=== PATIENT | male | born 1990 | race African-American/Black ===

== ENCOUNTER 2016-05-15 23:11 | Inpatient (IN) | payer OTHER ==
[~2016-05-15] VITALS: Ht 195.6 cm; Wt 77.0 kg
[2016-05-15 23:13] VITALS: BP 124/76; PULSE 42; RESP 16; TEMP 98; O2SAT 100
[2016-05-16 00:29] VITALS: BP 122/75; PULSE 104; RESP 18; O2SAT 96
[2016-05-16 01:07] LABS: AUTOMATED NEUTROPHIL # 4.8 TH/MM3 (1.8-7.7); BASOPHIL % 0.5 % (0.0-2.0); EOSINOPHIL # 0.5 TH/MM3 (0-0.4); EOSINOPHIL % 6.4 % (0.0-4.0); HEMATOCRIT 42.7 % (39.0-51.0); HEMO FLAGS DIFF FINAL; LYMPH % 26.7 % (9.0-44.0); LYMPHOCYTE # 2.1 TH/MM3 (1.0-4.8); MEAN CELL VOLUME 81.8 FL (80.0-100.0); MEAN CORPUSCULAR HGB CONC 34.3 % (32.0-36.0); MONO % 6.3 % (0.0-8.0); NEUT % 60.1 % (16.0-70.0); PLATELET COUNT 180 TH/MM3 (150-450); RED BLOOD COUNT 5.22 MIL/MM3 (4.50-5.90); RED CELL DISTRIBUTION WIDTH 14.9 % (11.6-17.2)
[2016-05-16 01:10] LABS: AMPHETAMINE, URINE NEG (NEG); BARBITURATES, URINE NEG (NEG); COCAINE, URINE NEG (NEG)
[2016-05-16 01:14] LABS: ANION GAP 6 MEQ/L (5-15); BICARBONATE 29.7 MEQ/L (21.0-32.0); BLOOD UREA NITROGEN 10 MG/DL (7-18); CHLORIDE 105 MEQ/L (98-107); GLOMERULAR FILTRATION RATE 82 ML/MIN (>89); POTASSIUM 3.7 MEQ/L (3.5-5.1); SODIUM (NA) 141 MEQ/L (136-145)
--- NOTE | 2016-05-16 01:55 | PD ---
HPI Chief Complaint: Psychiatric Symptoms Time Seen by Provider: 01:55 Travel History International Travel<30 days: No Contact w/Intl Traveler<30days: No Traveled to known affect area: No History of Present Illness HPI 26-year-old male with no significant medical history presents to the emergency department voluntarily for psychiatric evaluation. Patient states that he has been depressed and having suicidal thoughts. He has no active plan. Reports occasional alcohol, tobacco, marijuana use. Reports no other symptoms at this time. [facility] Past Medical History Medical History: Denies Significant Hx Diminished Hearing: No Immunizations Current: Yes Past Surgical History Other Surgery: Yes (LEFT INDEX FINGER) Social History Alcohol Use: Yes (OCC) Tobacco Use: Yes (1 BLACK PER DAY) Substance Use: Yes Allergies-Medications (Allergen,Severity, Reaction): Coded Allergies: No Known Allergies (Unverified , 05/15/16) Reported Meds & Prescriptions Reported Meds & Active Scripts Active No Active Prescriptions or Reported Medications Review of Systems Except as stated in HPI: all other systems reviewed are Neg Physical Exam Narrative GENERAL: Well-nourished male patient, in no acute distress SKIN: Warm and dry. HEAD: Atraumatic. Normocephalic. EYES: Pupils equal and round. No scleral icterus. No injection or drainage. ENT: No nasal bleeding or discharge. Mucous membranes pink and moist. NECK: Trachea midline. No JVD. CARDIOVASCULAR: Regular rate and rhythm. No murmur appreciated. RESPIRATORY: No accessory muscle use. Clear to auscultation. Breath sounds equal bilaterally. GASTROINTESTINAL: Abdomen soft, non-tender, nondistended. Hepatic and splenic margins not palpable. MUSCULOSKELETAL: No obvious deformities. No clubbing. No cyanosis. No edema. NEUROLOGICAL: Awake and alert. No obvious cranial nerve deficits. Motor grossly within normal limits. Normal speech. Data Data Last Documented VS Vital Signs Date Time Temp Pulse Resp B/P Pulse Ox O2 Delivery O2 Flow Rate FiO2 05/16/16 02:11 89 18 112/57 96 Room Air 05/15/16 23:13 98.0 Orders Complete Blood Count With Diff (05/16/16 00:12) Basic Metabolic Panel (Bmp) (05/16/16 00:12) Drug Screen, Random Urine (05/16/16 00:12) Alcohol (Ethanol) (05/16/16 00:12) Psych Screen (05/16/16 00:12) Diet Regular Basic (05/16/16 Breakfast) Labs Laboratory Tests Test 05/16/16 00:30 White Blood Count 8.0 TH/MM3 Red Blood Count 5.22 MIL/MM3 Hemoglobin 14.6 GM/DL Hematocrit 42.7 % Mean Corpuscular Volume 81.8 FL Mean Corpuscular Hemoglobin 28.0 PG Mean Corpuscular Hemoglobin 34.3 % Concent Red Cell Distribution Width 14.9 % Platelet Count 180 TH/MM3 Mean Platelet Volume 8.5 FL Neutrophils (%) (Auto) 60.1 % Lymphocytes (%) (Auto) 26.7 % Monocytes (%) (Auto) 6.3 % Eosinophils (%) (Auto) 6.4 % Basophils (%) (Auto) 0.5 % Neutrophils # (Auto) 4.8 TH/MM3 Lymphocytes # (Auto) 2.1 TH/MM3 Monocytes # (Auto) 0.5 TH/MM3 Eosinophils # (Auto) 0.5 TH/MM3 Basophils # (Auto) 0.0 TH/MM3 CBC Comment DIFF FINAL Differential Comment Sodium Level 141 MEQ/L Potassium Level 3.7 MEQ/L Chloride Level 105 MEQ/L Carbon Dioxide Level 29.7 MEQ/L Anion Gap 6 MEQ/L Blood Urea Nitrogen 10 MG/DL Creatinine 1.10 MG/DL Estimat Glomerular Filtration 82 ML/MIN Rate Random Glucose 126 MG/DL Calcium Level 8.9 MG/DL Urine Opiates Screen NEG Urine Barbiturates Screen NEG Urine Amphetamines Screen NEG Urine Benzodiazepines Screen NEG Urine Cocaine Screen NEG Urine Cannabinoids Screen POS Ethyl Alcohol Level LESS THAN 3 MG/DL MDM Medical Decision Making Medical Screen Exam Complete: Yes Emergency Medical Condition: Yes Medical Record Reviewed: Yes Differential Diagnosis Mood disorder versus personality disorder versus adjustment reaction disorder versus malingering Narrative Course 26-year-old male presents to the emergency department all interiorly for psychiatric evaluation. Patient appears without distress. Lab work is without acute concern. Patient is medically cleared to undergo psychiatric screening for further evaluation and disposition. Mental health screening discussed with the patient. Psychiatric screen ordered. Diagnosis Primary Impression: Adjustment reaction with anxiety and depression Scripts No Active Prescriptions or Reported Meds Condition: Yomaira Reyes May 16, 2016 01:55
[2016-05-16 02:11] VITALS: BP 112/57; PULSE 89; RESP 18; O2SAT 96
[2016-05-16 06:15] VITALS: BP 122/78; PULSE 78; RESP 18; TEMP 97.4; O2SAT 97
[2016-05-16 11:21] VITALS: BP 106/55; PULSE 54; RESP 16; O2SAT 98
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
[2016-05-16] MEDS ORDERED: ACETAMINOPHEN 325 MG TAB PO PRN (13:00)
[2016-05-16] MEDS ORDERED: MAGNESIUM HYDROXIDE SUSP 30 ML CUP PO PRN (13:00)
[2016-05-16] MEDS ORDERED: ALUMINUM/MAGNESIUM/SIMETH 30 ML CUP PO PRN (13:00)
[2016-05-16 13:22] VITALS: BP 107/64; PULSE 45; RESP 18; TEMP 98.3; O2SAT 99
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
[2016-05-16] MEDS ORDERED: LORazepam 0.5 MG TAB PO PRN (17:00)
[2016-05-16] MEDS: QUEtiapine FUMARATE 100 MG TAB PO SCH (20:27)
[2016-05-16] MEDS: DIVALPROEX SODIUM DELAYED RELEASE 250 MG TAB PO SCH (20:27)
[2016-05-17 05:38] VITALS: BP 96/53; RESP 18; TEMP 97.6; O2SAT 96
[2016-05-17 08:05] LABS: ANION GAP 4 MEQ/L (5-15); BICARBONATE 30.8 MEQ/L (21.0-32.0); BLOOD UREA NITROGEN 9 MG/DL (7-18); CHLORIDE 107 MEQ/L (98-107); GLOMERULAR FILTRATION RATE 90 ML/MIN (>89); HDL CHOLESTEROL 77.2 MG/DL (40.0-60.0); LDL CHOLESTEROL 78 MG/DL (0-99); POTASSIUM 4.7 MEQ/L (3.5-5.1); SODIUM (NA) 142 MEQ/L (136-145)
[2016-05-17] MEDS: DIVALPROEX SODIUM DELAYED RELEASE 250 MG TAB PO SCH ×2 (08:27→20:50)
--- NOTE | 2016-05-17 11:50 | HHI.PYPN ---
Subjective Remarks Patient was seen and discussed with the medical staff coordinator. Patient tends to isolate himself and withdraws he was encouraged to participate in all the therapeutic activity on the floor. Patient claimed that he feels safe in the hospital and denied any suicidal ideation intentions or plan. No behavior or management problem reported. Denied any auditory or visual hallucinations. Patient is compliant in taking medication no side effects were complained. Advised to continue with the same treatment. donor services technician to assist. Review of Systems Except as stated in HPI: all other systems reviewed are Neg Psychiatric: COMPLAINS OF: Mood changes, Depression Objective Alert: Yes [place]: Person (ox4) Mood: Depressed Affect: Euthymic Memory Intact: Comment (no impairment) Hallucinations: Other (patient denied any active auditory or visual hallucinations) Delusions: No Delusion Type: Other Suicidal: Ideation (deneis current plan) Homicidal: Ideation (deneis any) Insight/Judgement Fair Labs Test 05/17/16 07:17 Sodium Level 142 MEQ/L Potassium Level 4.7 MEQ/L Chloride Level 107 MEQ/L Carbon Dioxide Level 30.8 MEQ/L Anion Gap 4 MEQ/L Blood Urea Nitrogen 9 MG/DL Creatinine 1.20 MG/DL Estimat Glomerular Filtration 90 ML/MIN Rate Random Glucose 85 MG/DL Calcium Level 9.0 MG/DL Triglycerides Level 68 MG/DL Cholesterol Level 169 MG/DL LDL Cholesterol 78 MG/DL HDL Cholesterol 77.2 MG/DL Cholesterol/HDL Ratio 2.18 RATIO Vitals/IOs Vital Signs Date Time Temp Pulse Resp B/P Pulse Ox O2 Delivery O2 Flow Rate FiO2 05/17/16 05:38 97.6 18 96/53 96 05/16/16 13:22 45 05/16/16 06:15 Room Air Assessment & Plan Problem List: (1) Adjustment disorder with depressed mood ICD Code: F43.21 Assessment & Plan Estimated LOS: days Justification for Cont. Inpt. Monitoring of the medication to lift her depression and stabilize his mood Request HC Surrog/Guard Advoc?: No Saúl Christianson MD May 17, 2016 11:50
[2016-05-17 17:32] LABS: HEMOGLOBIN A1a 1.1 %; HEMOGLOBIN A1b 0.8 %; HEMOGLOBIN Ao 85.9 %; HEMOGLOBIN LA1C 1.7 %; HEMOGLOBIN P3 3.3 %
[2016-05-17 18:00] VITALS: BP 104/60; PULSE 49; RESP 18; TEMP 98.2; O2SAT 100
[2016-05-17] MEDS: QUEtiapine FUMARATE 100 MG TAB PO SCH (20:50)
[2016-05-18 05:31] VITALS: BP 98/61; PULSE 55; RESP 16; TEMP 97.7
[2016-05-18] MEDS: DIVALPROEX SODIUM DELAYED RELEASE 250 MG TAB PO SCH (09:40)
--- NOTE | 2016-05-18 10:13 | HHI.DS ---
Psychiatry Discharge Summary Inpatient Psychiatric care?: Yes Advance Directive: No Reason Not Provided: Due to Patient Condition Mental Health AdvanceDirective: No Health Care Proxy: No Admission Admission Date May 16, 2016 at 12:55 Admission Diagnosis: (1) Adjustment disorder with depressed mood ICD Code: F43.21 GAF Score: 45 Brief History This is a 26-year-old black male who comes came to the emergency room voluntarily asking for some help for feeling depressed said and having some passive suicidal thoughts. Patient claimed that he has been feeling depressed for several years and in the last 3 months is getting worse. He feels sad has no energy has difficulty falling sleep and staying sleep he cannot into anything has anhedonia. He gets easily irritated table and angry and loses his temper his grades are falling down he is not able to concentrate he is tired of living like this and wants some help. He also had some dispute with his mother and started to feel like he did not care. He also claimed that he broke up with his girlfriend. He does admit to occasionally using or abusing pot or alcohol. He also admitted to feeling pack mind racing or having negative thoughts and going through the extreme and wants some help Tobacco Use In Past 30 Days: No Tobacco Past 30 Days Alcohol Use: Never Hospital Course Patient was started on supportive treatment. He stayed in his room most of the time. But denies any suicidal ideation intentions or plan. No behavior or management problem reported. Denied any auditory or visual hallucinations. He is willing to follow-up as an outpatient and take the medication. Patient wanted to go home at that point arrangements were made for him to be discharged Results Blood Pressure 98 / 61 Vital Signs Date Time Temp Pulse Resp B/P Pulse Ox O2 Delivery O2 Flow Rate FiO2 05/18/16 05:31 97.7 55 16 98/61 05/17/16 18:00 100 05/16/16 06:15 Room Air Laboratory Tests Test 05/16/16 05/17/16 00:30 07:17 Eosinophils (%) (Auto) 6.4 % (0.0-4.0) Eosinophils # (Auto) 0.5 TH/MM3 (0-0.4) Estimat Glomerular Filtration 82 ML/MIN (>89) Rate Random Glucose 126 MG/DL (74-106) Urine Cannabinoids Screen POS (NEG) Anion Gap 4 MEQ/L (5-15) HDL Cholesterol 77.2 MG/DL (40.0-60.0) Laboratory Results Test 05/17/16 07:17 Hemoglobin A1c 5.5 % (4.3-6.0) Triglycerides Level 68 MG/DL (42-150) Cholesterol Level 169 MG/DL (120-200) LDL Cholesterol 78 MG/DL (0-99) HDL Cholesterol 77.2 MG/DL (40.0-60.0) Summary of Major Lab Results Nothing significant Summary of Procedures None Imaging None Pending results at discharge: No Medications # of Antipsychotic meds at D/C: 0 Approp Antipsych med options 1 - Minimum of three failed multiple trials of monotherapy. 2 - Documented plan to taper to monotherapy due to previous use of multiple meds OR cross-taper in progress at D/C. 3 - Documentation of augmentation of Clozapine. 4 - Justification other than those listed in allowable values 1-3, document here : Discharge Discharge Date: May 18, 2016 Discharge Diagnosis: (1) Adjustment disorder with depressed mood Diagnosis: Principal ICD Code: F43.21 Mental Status Exam at Disch Patient was alert oriented 3 cooperative casually dressed. His speech was slow without any evidence of loose associations or flights of ideas or pressure speech his mood was described as feeling fine and willing to take the medication and follow-up as an outpatient he denied any suicidal ideation intentions or plan denied any auditory or visual hallucinations no behavior or management problem reported Pt Condition on Discharge: Stable Discharge Disposition: Discharge Home Discharge Instructions Diet Instructions: As Tolerated, No Restrictions Activities you can perform: Regular-No Restrictions Scheduled Appointment: Jesse Bowen Discharge Time <= 30 minutes Discharge/Advance Care Plan Health Problems: (1) Adjustment disorder with depressed mood Goals to promote your health * To prevent worsening of your condition and complications * To maintain your health at the optimal level Directions to meet your goals Take your medications as prescribed Follow your dietary instruction Follow activity as directed Keep your appointments as scheduled Take your immunizations and boosters as scheduled If your symptoms worsen call your PCP, if no PCP go to Urgent Care Center or Emergency Room For 30/10 questions related to your inpatient stay or results of tests pending at discharge, please contact Dr. Saúl Christianson at Smoking is Dangerous to Your Health. Avoid second hand smoking Saúl Christianson MD May 18, 2016 10:13
[2016-05-18] MEDS ORDERED: DIVA250T PO (10:14)
[2016-05-18] MEDS ORDERED: QUET1TAB8 PO (10:14)
== END 2016-05-18 13:30 | disposition home or self-care (01) | DRG 882 ==
LOC: NEPJ 23:11 → NEDA 05-16 12:55 → H260 05-16 13:16
PROVIDERS: ADMIT Psychiatry & Neurology Psychiatry; ATTEND Psychiatry & Neurology Psychiatry
DX: F43.23 Adjustment disorder with mixed anxiety and depressed mood (principal); R45.851 Suicidal ideations; F10.10 Alcohol abuse, uncomplicated; F12.10 Cannabis abuse, uncomplicated; F17.200 Nicotine dependence, unspecified, uncomplicated
CPT/HCPCS: 80048; 80061; 80307; 80320; 83036; 85025; 99284